=== PATIENT | male | born 1990 | race Caucasian/White ===

== ENCOUNTER 2020-11-20 09:54 | Emergency (ER) | payer OTHER, SELFPAY ==
[2020-11-20 10:03] VITALS: BP 125/82; PULSE 93; RESP 16; TEMP 36.6; O2SAT 98; BMI 24.3
[2020-11-20 10:17] VITALS: BP 125/82; PULSE 93; RESP 16; O2SAT 98
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
== END 2020-11-20 10:40 | disposition home or self-care (01) ==
PROVIDERS: Emergency Provider Physician Assistant
DX: T24.191A Burn of first degree of multiple sites of right lower limb, except ankle and foot, initial encounter (principal); T23.191A Burn of first degree of multiple sites of right wrist and hand, initial encounter; T23.192A Burn of first degree of multiple sites of left wrist and hand, initial encounter; W40.8XXA Explosion of other specified explosive materials, initial encounter
CPT/HCPCS: 99282